=== PATIENT | female | born 1980 | race Two or more races ===

== ENCOUNTER 2022-12-30 11:52 | Emergency (ER) | payer MEDICAID ==
[~2022-12-30] VITALS: Ht 142.2 cm; Wt 58.6 kg
[2022-12-30 14:39] VITALS: BP 137/93; PULSE 90; RESP 16; TEMP 98.2
== END 2022-12-30 15:15 | disposition home or self-care (01) ==
LOC: EMS 11:59
DX: M25.521 Pain in right elbow (principal); F17.210 Nicotine dependence, cigarettes, uncomplicated
CPT/HCPCS: 99283